=== PATIENT | female | born 2000 | race Caucasian/White ===

== ENCOUNTER 2024-02-11 03:07 | Emergency (ER) | payer SELFPAY ==
[~2024-02-11] VITALS: Ht 160 cm; Wt 60.0 kg
[2024-02-11 03:18] VITALS: BP 119/75; PULSE 102; RESP 18; TEMP 98.4; O2SAT 98
== END 2024-02-11 04:48 | disposition left against medical advice (07) ==
LOC: ER 03:07
DX: M54.9 Dorsalgia, unspecified (principal); Z53.21 Procedure and treatment not carried out due to patient leaving prior to being seen by health care provider